=== PATIENT | female | born 1975 | race Caucasian/White ===

== ENCOUNTER 2017-06-10 15:23 | Emergency (ER) | payer OTHER ==
[2017-06-10 15:34] VITALS: BP 112/57; PULSE 72; TEMP 97.9; BMI 31.8
[2017-06-10] MEDS ORDERED: KETOROLAC TROMETHAMINE 60 MG/2 ML VIAL IM ONE (16:49)
--- NOTE | 2017-06-10 16:54 | PDOC ---
History of Present Illness - General Chief Complaint: Back Pain Stated Complaint: LT SIDE PAIN Time Seen by Provider: 06/10/17 15:51 - History of Present Illness Initial Comments: 06/10/17 16:49 CHIEF COMPLAINT: back pain, cough HISTORY OF PRESENT ILLNESS: 42 yo F with no significant PMH presents to ED with cough x 1 week and left sided low back pain x 4 days. Patient denies any radiation of the back pain and reports the pain is worse when she coughs. She denies any fever, chills, nausea, vomiting, or diarrhea, and denies any loss of bowel or bladder function or loss of sensation to her lower extremities. No recent travel or sick contacts. PAST MEDICAL HISTORY: Denies past medical history FAMILY HISTORY: Denies SOCIAL HISTORY: Denies tobacco, alcohol, illicit drug use. SURGICAL HISTORY: Denies ALLERGIES: No known drug allergies REVIEW OF SYSTEMS as per HPI PHYSICAL EXAM General Appearance: Well-appearing, appropriately dressed. No apparent distress , no intoxication. HEENT: EOMI, PERRLA, normal ENT inspection, normal voice, TMs normal, pharynx normal. No conjunctival pallor. No photophobia, scleral icterus. Respiratory/Chest: Lungs CTAB. Cardiovascular: RRR. S1, S2. Lymphatic: No adenopathy, tenderness. Musculoskeletal/Extremities: Tenderness on palpation to L paravertebral muscles. FROM of all extremities, normal capillary refill. Pelvis Stable. No CVA tenderness. No tenderness to extremities, pedal edema, swelling, erythema or deformity. Integumentary: Appropriate color, dry, warm. No cyanosis, erythema, jaundice or rash Neurologic: provisioning specialist II-XII intact. Fully oriented, alert. Appropriate mood/affect. Motor strength 5/5. No appreciable EOM palsy, facial droop or sensory deficit. 06/10/17 16:58 Past History - Past Medical History Allergies/Adverse Reactions: Allergies Allergy/AdvReac Type Severity Reaction Status Date / Time No Known Allergies Allergy Verified 06/10/17 15:30 Home Medications: Ambulatory Orders Benzonatate [Tessalon Pearls -] 100 mg PO TID PRN #21 capsule 06/10/17 Naproxen 375 mg PO BID #14 tablet 06/10/17 Asthma: Yes COPD: No - Suicide/Smoking/Psychosocial Hx Smoking Status: No Smoking History: Never smoked Number of Cigarettes Smoked Daily: 0 Hx Alcohol Use: No *Physical Exam - Vital Signs Last Vital Signs Temp Pulse Resp BP Pulse Ox 97.9 F 72 19 112/57 97 06/10/17 15:31 06/10/17 15:31 06/10/17 15:31 06/10/17 15:31 06/10/17 15:31 Medical Decision Making - Medical Decision Making 06/10/17 17:01 42 yo F with no significant PMH presents to ED with cough x 1 week and left sided low back pain x 4 days. *DC/Admit/Observation/Transfer Diagnosis at time of Disposition: Cough - Discharge Dispostion Disposition: HOME Condition at time of disposition: Stable Admit: No - Prescriptions Prescriptions: Benzonatate [Tessalon Pearls -] 100 mg PO TID PRN #21 capsule PRN Reason: Cough Naproxen 375 mg PO BID #14 tablet - Referrals Referrals: Colton Zaragoza MD [Staff Physician] - - Patient Instructions Printed Discharge Instructions: DI for Low Back Pain, DI for Cough -- Adult Additional Instructions: Please take medications as prescribed. Follow up with a primary care doctor in 5 days if symptoms persist. If you develop any fever, chills, vomiting, diarrhea, loss of sensation to your legs, loss of bowel or bladder function, or are unable to walk, please return to the ER immediately. Por favor tome los medicamentos segn lo prescrito. Alex un seguimiento con un m dico de atencin primaria en 5 tovar si los sntomas persisten. Si desarrolla fiebre, escalofros, vmitos, diarrea, prdida de sensibilidad en las piernas, p rdida de la funcin intestinal o de la vejiga o no puede caminar, regrese a la sam de emergencias inmediatamente. - Post Discharge Activity
[2017-06-10] MEDS ORDERED: KETOROLAC TROMETHAMINE 60 MG/2 ML VIAL ONE (17:02)
== END 2017-06-10 17:23 | disposition home or self-care (01) ==
LOC: JERFT 15:23
PROC: 3E0233Z Introduction of Anti-inflammatory into Muscle, Percutaneous Approach (ICD-10-PCS; principal; 2017-06-10)
DX: R05 Cough (principal); J45.909 Unspecified asthma, uncomplicated
CPT/HCPCS: 84703; 99281-25

== ENCOUNTER 2017-07-07 09:47 | Emergency (ER) | payer OTHER ==
[2017-07-07 09:58] VITALS: BP 93/60; PULSE 93; TEMP 98.5; BMI 31.8
[2017-07-07] MEDS ORDERED: PENICILLIN G BENZATHINE 1,200,000 UNIT/2 ML PFS IM ONE (10:27)
--- NOTE | 2017-07-07 10:27 | PDOC ---
History of Present Illness - General Chief Complaint: Sore Throat Stated Complaint: THROAT PAIN Time Seen by Provider: 07/07/17 10:17 History Source: Patient Exam Limitations: No Limitations - History of Present Illness Initial Comments: 07/07/17 10:27 Onset of sore throat pain 2 days ago with fevers. No cough/ + runny nose./ Some relief with Ibuprofen Timing/Duration: reports: getting worse Severity: reports: mild, moderate Associated Symptoms: reports: fever/chills, nasal congestion, sore throat. denies: cough Past History - Travel Traveled outside of the country in the last 30 days: No Close contact w/someone who was outside of country & ill: No - Past Medical History Allergies/Adverse Reactions: Allergies Allergy/AdvReac Type Severity Reaction Status Date / Time No Known Allergies Allergy Verified 07/07/17 09:52 Home Medications: Ambulatory Orders NK [No Known Home Medication] 07/07/17 Asthma: Yes COPD: No - Suicide/Smoking/Psychosocial Hx Smoking Status: No Smoking History: Never smoked Have you smoked in the past 12 months: No Number of Cigarettes Smoked Daily: 0 Information on smoking cessation initiated: No Hx Alcohol Use: No Drug/Substance Use Hx: No Substance Use Type: None Review of Systems - Review of Systems Able to Perform ROS?: Yes Is the patient limited Ethiopian proficient: Yes Constitutional: Yes: Symptoms Reported, See HPI, Chills, Fever, Loss of Appetite , Malaise HEENTM: Yes: Symptoms Reported, See HPI, Nose Congestion, Throat Pain, Throat Swelling, Difficulty Swallowing Respiratory: Yes: See HPI. No: Symptoms reported, Cough ABD/GI: Yes: Symptoms Reported : Yes: Symptoms Reported All Other Systems: Reviewed and Negative *Physical Exam - Vital Signs Last Vital Signs Temp Pulse Resp BP Pulse Ox 98.5 F 93 H 16 93/60 100 07/07/17 09:47 07/07/17 09:47 07/07/17 09:47 07/07/17 09:47 07/07/17 09:47 - Physical Exam General Appearance: Yes: Nourished, Appropriately Dressed, Apparent Distress, Mild Distress HEENT: positive: EOMI, CALLIE, TMs Normal (congested), Muffled/Hoarse voice, Pharyngeal Erythema, Tonsillar Exudate, Tonsillar Erythema, Nasal Congestion, Rhinorrhea Neck: positive: Tender, Supple, Lymphadenopathy (R), Lymphadenopathy (L) Respiratory/Chest: positive: Lungs Clear, Normal Breath Sounds Gastrointestinal/Abdominal: positive: Normal Bowel Sounds, Soft. negative: Tender Extremity: positive: Normal Capillary Refill, Normal Inspection Integumentary: positive: Normal Color, Dry, Warm, Pale Neurologic: positive: program management analyst II-XII NML intact, Fully Oriented, Alert, Normal Mood/ Affect, Normal Response, Motor Strength 5 Medical Decision Making - Medical Decision Making 07/07/17 10:33 Pharyngitis, probable strep clinically evidenced. Treated with 1.2 million units of Bicillin IM with no reaction after 30 minutes. *DC/Admit/Observation/Transfer Diagnosis at time of Disposition: Pharyngitis Qualifiers: Pharyngitis/tonsillitis etiology: unspecified etiology Qualified Code(s): J02.9 - Acute pharyngitis, unspecified - Discharge Dispostion Disposition: HOME Condition at time of disposition: Stable Admit: No - Referrals Referrals: Corrina Simon [Primary Care Provider] - - Patient Instructions Printed Discharge Instructions: DI for Pharyngitis/Tonsillopharyngitis -- Adult Additional Instructions: Rest, drink lots of fluids: Teas, water, soups Eat cold things: Ice cream, ice pops, ice chips Saltwater gargles Steamy showers/seem to face break up mucus Avoid contact with others until fevers and pain resolved Lots of handwashing and good hygiene, this is contagious You have been treated with Bicillin LA 1.2 million units injection which is a one-time treatment for strep pharyngitis. You will not need to take any further antibiotics. Tylenol or Motrin for fever and pain Followup with private physician in one to 2 days as needed if not improving Return to emergency department for worsened symptoms, fevers, dehydration - Post Discharge Activity Forms/Work/School Notes: Back to Work
[2017-07-07] MEDS ORDERED: PENICILLIN G BENZATHINE 2,400,000 UNIT/4 ML PFS ONE (10:37)
== END 2017-07-07 10:58 | disposition home or self-care (01) ==
LOC: JERFT 09:47
DX: J02.9 Acute pharyngitis, unspecified (principal)
CPT/HCPCS: 96372; 99281-25

== ENCOUNTER 2024-09-05 10:40 | Emergency (ER) | payer OTHER ==
[2024-09-05 10:55] VITALS: RESP 18; TEMP 98.8; BMI 29.7
[2024-09-05] MEDS ORDERED: ACETAMINOPHEN 500 MG TABLET (FP) ONE (12:07)
[2024-09-05 12:23] VITALS: BP 112/43; PULSE 55
[2024-09-05] MEDS: ACETAMINOPHEN 500 MG TABLET (FP) PO ONE (12:25)
== END 2024-09-05 12:51 | disposition home or self-care (01) ==
LOC: JERFT 10:40
DX: M79.671 Pain in right foot (principal); G89.29 Other chronic pain; Z76.0 Encounter for issue of repeat prescription
CPT/HCPCS: 73630-TC-RT-FY; 99283-25

== ENCOUNTER 2024-12-06 17:38 | Emergency (ER) | payer OTHER ==
[2024-12-06 17:49] VITALS: BP 108/61; PULSE 62; RESP 18; TEMP 98.2; BMI 32.0
[2024-12-06] MEDS ORDERED: LIDOCAINE 4% PATCH TP ONE (18:50)
[2024-12-06] MEDS ORDERED: ACETAMINOPHEN 325 MG TABLET (FP) ONE (18:50)
[2024-12-06] MEDS: ACETAMINOPHEN 500 MG TABLET (FP) PO ONE (18:53)
[2024-12-06] MEDS: LIDOCAINE 4% PATCH TP ONE (18:54)
[2024-12-06 19:27] LABS: URINE APPEARANCE CLOUDY; URINE BILIRUBIN NEGATIVE (NEGATIVE); URINE COLOR YELLOW; URINE GLUCOSE (UA) NEGATIVE (NEGATIVE); URINE KETONE TRACE (NEGATIVE); URINE LEUK ESTERASE NEGATIVE (NEGATIVE); URINE NITRITE NEGATIVE (NEGATIVE); URINE PROTEIN NEGATIVE (NEGATIVE); URINE UROBILINOGEN 1.0 mg/dL (0.2-1.0)
[2024-12-06] MEDS ORDERED: KETOROLAC TROMETHAMINE 15 MG/ML VIAL ONE (20:25)
[2024-12-06] MEDS: KETOROLAC TROMETHAMINE 15 MG/ML VIAL IM ONE (20:28)
[2024-12-06] MEDS ORDERED: LIDOCAINE PATCH REMOVAL MC SCH (22:00)
== END 2024-12-06 20:48 | disposition home or self-care (01) ==
LOC: JERFT 17:38 → JER 17:38 → JERFT 20:48
PROC: 3E0233Z Introduction of Anti-inflammatory into Muscle, Percutaneous Approach (ICD-10-PCS; principal; 2024-12-06)
DX: M54.50 Low back pain, unspecified (principal)
CPT/HCPCS: 81003; 87086; 99284-25